=== PATIENT | female | born 1985 | race Caucasian/White ===

== ENCOUNTER 2017-07-08 16:10 | Emergency (ER) | payer SELFPAY ==
--- NOTE | ~2017-07-08 | CR108 ---
[facility] A Service of [facility] & [facility] RADIOLOGY TEXT RESULTS PATIENT: LAWANDA QUEZADA LOCATION: SED : 85 UNIT #: [id number] AGE: [address]: TAB NOLEN SEX: F ORDER DR: [id number] [address] [address] [id number] E MR#: [id number] #: [id number] NAME: LAWANDA QUEZADA. : 1985 SEX: F STUDY DATE/TIME: 07/08/2017 16:43 UNIT: SED ROOM: STUDY DESCRIPTION: CR Finger 2 View 2nd Lt Attending Physician: Tab Nolen Ordering Physician: Tab Nolen MEDICAL IMAGING REPORT This report is preliminary unless electronic signature is present. EXAM Left second finger series, 07/08/2017 HISTORY Trauma last night. Second finger pain, black and blue, swollen. Hit finger on ground. FINDINGS AP, lateral and oblique radiographs of the left second digit are presented. No traumatic fracture or malalignment. The joint spaces are intact. Generalized soft tissue swelling without soft tissue defect, subcutaneous air or radiodense foreign body. Other visualized bony structures of left hand unremarkable. Other soft tissues unremarkable. Ring artifact over fifth digit. Dictated by... Reggie Nathan M.D. THIS IS AN ELECTRONICALLY VERIFIED REPORT Reggie Nathan M.D. at 07/09/2017 3:16 PM JOSE/orestes TD: 07/08/2017 21:41 JOB #: [id number] MEDICAL IMAGING REPORT Page 1 of 1
== END 2017-07-08 18:13 | disposition home or self-care (01) ==
LOC: SED 16:10
DX: S60.022A Contusion of left index finger without damage to nail, initial encounter (principal); F17.210 Nicotine dependence, cigarettes, uncomplicated; Z88.8 Allergy status to other drugs, medicaments and biological substances; W22.8XXA Striking against or struck by other objects, initial encounter; Y92.830 Public park as the place of occurrence of the external cause
CPT/HCPCS: 29280; 73140; 99283